=== PATIENT | male | born 1995 | race Caucasian/White ===

== ENCOUNTER 2018-07-09 14:37 | Observation (INO) | payer BC ==
[2018-07-09] MEDS ORDERED: SODIUM CHLORIDE 1,000 ML IV STA ×2 (14:45→18:25)
[2018-07-09] MEDS ORDERED: ONDANSETRON 4 MG/2 ML VIAL ONE (14:56)
--- NOTE | 2018-07-09 15:02 | PDOC ---
Attending Attestation - Resident Resident Name: Heath Lobatoson - ED Attending Attestation I have performed the following: I have examined & evaluated the patient, The case was reviewed & discussed with the resident, I agree w/resident's findings & plan, Exceptions are as noted - HPI HPI: 07/09/18 16:20 22-year-old male no past medical history here today complaining of nausea vomiting and body aches after mowing the lawn in the hot sun. Patient states he takes Adderall daily today he took his regular dose while mowing lawn he suddenly became very hot felt confused and suddenly developed severe nausea vomiting and fatigue. He did simply go home and take a very cold shower prior to presenting to the ED no rash no hematuria no seizure-like activity denies any other concurrent drug use - Physicial Exam PE: 07/09/18 17:40 Awake alert no acute distress patient is diaphoretic dry mucous membranes lungs are clear bilaterally heart is regular tachycardia no murmurs rubs or gallops abdomen is soft and nontender extremities are warm and well-perfused skin is diaphoretic neurologically the patient is awake alert and oriented 3 - Medical Decision Making 07/09/18 17:40 22-year-old male currently on Adderall with nausea vomiting following mowing the lawn in excessive heat differential diagnosis includes toxic ingestion heatstroke or heat exhaustion secondary to strenuous activity combined with a stimulant such as Adderall renal failure, liver failure, rhabdomyolysis, dehydration. Plan CBC CMP CPK tox screen IV hydration. Due to the patient's agitation and known stimulants we will add a benzodiazepine such as Ativan 1 mg IV. Patient is currently normothermic however he did just take a cold shower prior to arrival therefore he exhaustion is still a concern 07/09/18 17:48 pt with renal failure, ct a/p renal to eval for stone or obstruction negative. pt much improved. minimal urine output 200 ml after 2 L NS. yordy admit observation.d/w dr. gale for admission observation arf, heat stroke. temperatures controlled. Heart Score/ECG Review #1 General ECG Interpretation: Sinus Rhythm, Normal Rate, Normal Intervals, No acute ischemic changes
[2018-07-09] MEDS ORDERED: LORazepam 2 MG/ML SDV VIAL ONE (15:03)
[2018-07-09] MEDS ORDERED: ONDANSETRON 4 MG/2 ML VIAL IVPUSH ONE (15:07)
[2018-07-09 15:15] LABS: BASO % 0.3 % (0-2.0); HEMATOCRIT 50.5 % (35.4-49); HEMOGLOBIN 16.7 GM/dl (11.7-16.9); LYMPH % 8.4 % (8-40); MCH 29.8 pg (25.7-33.7); MCHC 33.2 g/dl (32.0-35.9); MEAN CELL VOLUME 89.9 fl (80-96); MEAN PLT VOLUME 9.1 fl (7.5-11.1); MONO % 7.1 % (3.8-10.2); NEUT % 84.2 % (42.8-82.8); PLATELET COUNT 326 K/MM3 (134-434); RBC 5.61 M/mm3 (4.00-5.60); RDW 13.9 % (11.9-15.9); WHITE BLOOD COUNT 18.6 K/mm3 (4.0-10.8)
[2018-07-09 15:29] LABS: ALBUMIN 6.8 g/dl (3.5-5.0); ALK PHOS 54 U/L (32-92); ANION GAP 20 MMOL/L (8-16); BILIRUBIN,TOTAL 1.3 mg/dl (0.2-1.0); BLOOD UREA NITROGEN 27 mg/dl (7-18); CALCIUM 11.5 mg/dl (8.4-10.2); CHLORIDE 89 mmol/L (98-107); CO2 24 mmol/L (22-28); CREATININE 2.7 mg/dl (0.6-1.3); GLUCOSE,RANDOM 149 mg/dl (74-106); POTASSIUM 4.2 mmol/L (3.5-5.1); SGOT/AST 32 U/L (10-42); SGPT/ALT 22 U/L (10-40); SODIUM 133 mmol/L (136-145)
[2018-07-09 15:34] LABS: TOT PROT 10.7 g/dl (6.4-8.3)
--- NOTE | 2018-07-09 16:02 | PDOC ---
History of Present Illness - General Chief Complaint: Nausea/Vomiting Stated Complaint: VOMITING Time Seen by Provider: 07/09/18 14:39 - History of Present Illness Initial Comments: 07/09/18 16:00 22 yo M with no significant pmh p/w fatigue, nausea, and vomiting. 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 Also reports fatigue, diaphoresis, and lighteadedness. Patient reports persistent symptoms dsepite taking a cold shower. Patient takes dialy Adderall. Patient denies F,C, CP, SOB, urinary complaints, hematuria, abdominal pain, diarrhea, BPR, constipation, lightheadedness, weakness, sensory changes. PMHx: as noted above Surgical: None ROS: as noted SHx: Denies Etoh, IVDA, tobacco use. Allergies: NKDA Past History - Past Medical History Allergies/Adverse Reactions: Allergies Allergy/AdvReac Type Severity Reaction Status Date / Time No Known Allergies Allergy Unverified 05/11/17 16:37 Home Medications: Ambulatory Orders Dextroamphetamine/Amphetamine [Adderall Xr 20 mg Capsule] 20 mg PO BID 07/09/18 COPD: No Psychiatric Problems: Yes (ADHD) - Suicide/Smoking/Psychosocial Hx Smoking History: Never smoked Have you smoked in the past 12 months: No Information on smoking cessation initiated: No Hx Alcohol Use: (weekends) Review of Systems - Review of Systems Comments:: 07/09/18 16:00 GENERAL/CONSTITUTIONAL: No fever or chills. No weakness. HEAD, EYES, EARS, NOSE AND THROAT: No change in vision. No ear pain or discharge. No sore throat. CARDIOVASCULAR: No chest pain or shortness of breath RESPIRATORY: No cough, wheezing, or hemoptysis. GASTROINTESTINAL: + nausea, vomiting. No diarrhea or constipation. GENITOURINARY: No dysuria, frequency, or change in urination. MUSCULOSKELETAL: No joint or muscle swelling or pain. No neck or back pain. SKIN: No rash NEUROLOGIC: + lightheadedness, and fatigue. No headache, vertigo, loss of consciousness, or change in strength/sensation. ENDOCRINE: No increased thirst. No abnormal weight change HEMATOLOGIC/LYMPHATIC: No anemia, easy bleeding, or history of blood clots. ALLERGIC/IMMUNOLOGIC: No hives or skin allergy. *Physical Exam - Vital Signs Last Vital Signs Temp Pulse Resp BP Pulse Ox 97.4 F L 97 H 18 102/87 97 07/09/18 14:37 07/09/18 14:37 07/09/18 14:37 07/09/18 14:37 07/09/18 14:37 - Physical Exam Comments: 07/09/18 16:00 GENERAL: Pale appearing, and diaphoretic. Awake, alert, and fully oriented, in no acute distress HEAD: No signs of trauma, normocephalic, atraumatic EYES: + conjuctival pallor. PERRLA, EOMI, sclera anicteric. ENT: + Dry mucous membranes. Auricles normal inspection, hearing grossly normal , nares patent, oropharynx clear without exudates. NECK: Normal ROM, supple, no lymphadenopathy, JVD, or masses LUNGS: No distress, speaks full sentences, clear to auscultation bilaterally HEART: Regular rate and rhythm, normal S1 and S2, no murmurs, rubs or gallops, peripheral pulses normal and equal bilaterally. ABDOMEN: Soft, nontender, normoactive bowel sounds. No guarding, no rebound. No masses EXTREMITIES : Normal inspection, Normal range of motion, no edema. No clubbing or cyanosis. NEUROLOGICAL: Cranial nerves II through XII grossly intact. Normal speech, normal gait, no focal sensorimotor deficits SKIN: Warm, Dry, normal turgor, no rashes or lesions noted ED Treatment Course - LABORATORY CBC & Chemistry Diagram: 07/09/18 14:55 07/09/18 14:55 - ADDITIONAL ORDERS Additional order review: Laboratory Results 07/09/18 07/09/18 14:55 14:55 Sodium 133 L Potassium 4.2 Chloride 89 L Carbon Dioxide 24 Anion Gap 20 H BUN 27 H Creatinine 2.7 H Creat Clearance w eGFR 29.43 Random Glucose 149 H Calcium 11.5 H Total Bilirubin 1.3 H AST 32 ALT 22 Alkaline Phosphatase 54 Creatine Kinase 178 Creatine Kinase Index 1.4 CK-MB (CK-2) 2.5 Total Protein 10.7 H Albumin 6.8 H 07/09/18 14:55 RBC 5.61 H MCV 89.9 MCHC 33.2 RDW 13.9 MPV 9.1 Neutrophils % 84.2 H Lymphocytes % 8.4 Monocytes % 7.1 Eosinophils % 0.0 Basophils % 0.3 - Medications Given in the ED: ED Medications Discontinued Medications Generic Name Dose Route Start Last Admin Trade Name Riddhi PRN Reason Stop Dose Admin Sodium Chloride 1,000 mls @ 1,000 mls/hr 07/09/18 14:45 07/09/18 14:55 Normal Saline - IV 07/09/18 15:44 1,000 mls/hr ASDIR STA Administration Lorazepam 1 mg 07/09/18 15:07 07/09/18 15:09 Ativan Injection - IVPUSH 07/09/18 15:08 1 mg ONCE ONE Administration Ondansetron HCl 4 mg 07/09/18 15:07 07/09/18 15:00 Zofran Injection IVPUSH 07/09/18 15:08 4 mg ONCE ONE Administration Medical Decision Making - Medical Decision Making 07/09/18 16:03 22 yo M with no significant pmh p/w fatigue, nausea, and vomiting. VSS, AF. Patient with clinical s/s of dehydration. Likely heat exhaustion. Low suspicion heat stroke. Patient non delusional. A&Ox3, Temp 97.4, and maintains perspiration. Will provide IVF, assess for end organ dysfunction, and electrolyte abnml, metabolic or toxic derangements, acid base disturbances. ED Course: EKG: NSR with 1st degree AV block, MA interval 226, and absent BERNY, STD. 07/09/18 16:46 WBC: 18.6 BUN/Cr: 27/2.7 07/09/18 16:46 Microblogged admitting symphony group 07/09/18 17:[address] Carbone Med/Surg Consult Dr. Bullard renal *DC/Admit/Observation/Transfer Diagnosis at time of Disposition: MATTHEW (acute kidney injury) Heat exhaustion Qualifiers: Encounter type: initial encounter Qualified Code(s): T67.5XXA - Heat exhaustion , unspecified, initial encounter - Discharge Dispostion Condition at time of disposition: Stable Decision to Admit order: Yes - Referrals Referrals: Blair Roach MD [Primary Care Provider] - - Patient Instructions Additional Instructions: Please return to the emergency department with any new or worsening symptoms or concerns. Please follow up with your primary care physician within 72 hours. - Post Discharge Activity - Attestations Physician Attestion: 07/09/18 16:01 I attest to the information provided in this note.
[2018-07-09] MEDS ORDERED: SODIUM CHLORIDE 0.9% 1000 ML INFUS.BAG IV ONE (16:39)
[2018-07-09 16:47] LABS: INR 1.04 (0.82-1.09); PROTHROMBIN TIME (PATIENT) 11.6 SEC (10.2-13.0)
[2018-07-09 18:14] LABS: PH,URINE 5.5 (4.5-8); URINE APPEARANCE Clear; URINE BILIRUBIN 1+ (NEGATIVE); URINE COLOR Yellow; URINE GLUCOSE (UA) Negative (NEGATIVE); URINE KETONE 1+ (NEGATIVE); URINE LEUK ESTERASE Negative (NEGATIVE); URINE NITRITE Negative (NEGATIVE); URINE UROBILINOGEN 0.2 (0.2-1.0)
[2018-07-09 18:15] LABS: URINE PROTEIN 2+ (NEGATIVE)
[2018-07-09 18:32] LABS: VENOUS PC02 54.7 mmHg (38-52); VENOUS PH 7.28 (7.32-7.42); VENOUS PO2 32.9 mmHg (28-48)
[2018-07-09 19:41] LABS: URINE RBC 0-2 /hpf (0-3); URINE WBC 0-1 (0-2)
--- NOTE | 2018-07-09 20:57 | HP ---
CHIEF COMPLAINT: Fatigue, Nausea, Vomiting PCP: Dr. Blair Roach HISTORY OF PRESENT ILLNESS: 22 yo M with no significant pmh p/w fatigue, nausea, and vomiting. 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 Also reports fatigue, diaphoresis, and lightheadedness. Patient reports persistent symptoms despite taking a cold shower. Patient takes daily Adderall. Patient denies Fever,Chills, CP, SOB, urinary complaints, hematuria, abdominal pain, diarrhea, BPR, constipation, lightheadedness, weakness, sensory changes. ER course was notable for: (1) WBC 18 (2) MATTHEW 27/2.7 (3) EKG- NSR no ST or TWI (4) CTAP- no acute pathology Recent Travel: None PAST MEDICAL HISTORY: See HPI PAST SURGICAL HISTORY: None Social History: Smoking: No tobacco Alcohol: Social Drugs: Marijuana- occasional Family History: Non contributory Allergies No Known Allergies Allergy (Unverified 05/11/17 16:37) HOME MEDICATIONS: Home Medications Medication Instructions Recorded Dextroamphetamine/Amphetamine 20 mg PO BID 07/09/18 [Adderall Xr 20 mg Capsule] REVIEW OF SYSTEMS CONSTITUTIONAL: diaphoresis, generalized weakness, malaise Absent: fever, chills, loss of appetite, weight change HEENT: Absent: rhinorrhea, nasal congestion, throat pain, throat swelling, difficulty swallowing, mouth swelling, ear pain, eye pain, visual changes CARDIOVASCULAR: Absent: chest pain, syncope, palpitations, irregular heart rate, lightheadedness , peripheral edema RESPIRATORY: Absent: cough, shortness of breath, dyspnea with exertion, orthopnea, wheezing, stridor, hemoptysis GASTROINTESTINAL: Absent: abdominal pain, abdominal distension, nausea, vomiting, diarrhea, constipation, melena, hematochezia GENITOURINARY: Absent: dysuria, frequency, urgency, hesitancy, hematuria, flank pain, genital pain MUSCULOSKELETAL: Absent: myalgia, arthralgia, joint swelling, back pain, neck pain SKIN: Absent: rash, itching, pallor HEMATOLOGIC/IMMUNOLOGIC: Absent: easy bleeding, easy bruising, lymphadenopathy, frequent infections ENDOCRINE: Absent: unexplained weight gain, unexplained weight loss, heat intolerance, cold intolerance NEUROLOGIC: Absent: headache, focal weakness or paresthesias, dizziness, unsteady gait, seizure, mental status changes, bladder or bowel incontinence PSYCHIATRIC: Absent: anxiety, depression, suicidal or homicidal ideation, hallucinations. PHYSICAL EXAMINATION Vital Signs - 24 hr 07/09/18 07/09/18 14:37 18:44 Temperature 97.4 F L 97.6 F Pulse Rate 97 H Pulse Rate [ 89 Left Apical] Respiratory 18 16 Rate Blood Pressure 102/87 Blood Pressure 121/68 [Right Arm] O2 Sat by Pulse 97 99 Oximetry (%) GENERAL: Awake, alert, and fully oriented, in no acute distress. HEAD: Normal with no signs of trauma. EYES: Pupils equal, round and reactive to light, extraocular movements intact, sclera anicteric, conjunctiva clear. No lid lag. EARS, NOSE, THROAT: Ears normal, nares patent, oropharynx clear without exudates. Dry mucous membranes. NECK: Normal range of motion, supple without lymphadenopathy, JVD, or masses. LUNGS: Breath sounds equal, clear to auscultation bilaterally. No wheezes, and no crackles. No accessory muscle use. HEART: Regular rate and rhythm, normal S1 and S2 without murmur, rub or gallop. ABDOMEN: Soft, nontender, not distended, normoactive bowel sounds, no guarding, no rebound, no masses. No hepatomegaly or splenomegaly. MUSCULOSKELETAL: Normal range of motion at all joints. No bony deformities or tenderness. No CVA tenderness. UPPER EXTREMITIES: 2+ pulses, warm, well-perfused. No cyanosis. No clubbing. No peripheral edema. LOWER EXTREMITIES: 2+ pulses, warm, well-perfused. No calf tenderness. No peripheral edema. NEUROLOGICAL: Cranial nerves II-XII intact. Normal speech. Gait not observed. PSYCHIATRIC: Cooperative. Good eye contact. Appropriate mood and affect. SKIN: Warm, dry, normal turgor, no rashes or lesions noted, normal capillary refill. Laboratory Results - last 24 hr 07/09/18 07/09/18 07/09/18 14:55 14:55 14:55 WBC 18.6 H RBC 5.61 H Hgb 16.7 Hct 50.5 H MCV 89.9 MCH 29.8 MCHC 33.2 RDW 13.9 Plt Count 326 MPV 9.1 Absolute Neuts (auto) 15.6 Neutrophils % 84.2 H Lymphocytes % 8.4 Monocytes % 7.1 Eosinophils % 0.0 Basophils % 0.3 PT with INR INR VBG pH POC VBG pCO2 POC VBG pO2 Mixed VBG HCO3 Sodium 133 L Potassium 4.2 Chloride 89 L Carbon Dioxide 24 Anion Gap 20 H BUN 27 H Creatinine 2.7 H Creat Clearance w eGFR 29.43 Random Glucose 149 H Lactic Acid Calcium 11.5 H Total Bilirubin 1.3 H AST 32 ALT 22 Alkaline Phosphatase 54 Creatine Kinase 178 Creatine Kinase Index 1.4 CK-MB (CK-2) 2.5 Total Protein 10.7 H Albumin 6.8 H Urine Color Urine Appearance Urine pH Ur Specific [place] Urine Protein Urine Glucose (UA) Urine Ketones Urine Blood Urine Nitrite Urine Bilirubin Urine Urobilinogen Ur Leukocyte Esterase Urine RBC Urine WBC 07/09/18 07/09/18 07/09/18 16:10 16:10 16:10 WBC RBC Hgb Hct MCV MCH MCHC RDW Plt Count MPV Absolute Neuts (auto) Neutrophils % Lymphocytes % Monocytes % Eosinophils % Basophils % PT with INR 11.6 INR 1.04 VBG pH 7.28 L POC VBG pCO2 54.7 H POC VBG pO2 32.9 Mixed VBG HCO3 24.6 Sodium Potassium Chloride Carbon Dioxide Anion Gap BUN Creatinine Creat Clearance w eGFR Random Glucose Lactic Acid 1.4 Calcium Total Bilirubin AST ALT Alkaline Phosphatase Creatine Kinase Creatine Kinase Index CK-MB (CK-2) Total Protein Albumin Urine Color Urine Appearance Urine pH Ur Specific [place] Urine Protein Urine Glucose (UA) Urine Ketones Urine Blood Urine Nitrite Urine Bilirubin Urine Urobilinogen Ur Leukocyte Esterase Urine RBC Urine WBC 07/09/18 17:45 WBC RBC Hgb Hct MCV MCH MCHC RDW Plt Count MPV Absolute Neuts (auto) Neutrophils % Lymphocytes % Monocytes % Eosinophils % Basophils % PT with INR INR VBG pH POC VBG pCO2 POC VBG pO2 Mixed VBG HCO3 Sodium Potassium Chloride Carbon Dioxide Anion Gap BUN Creatinine Creat Clearance w eGFR Random Glucose Lactic Acid Calcium Total Bilirubin AST ALT Alkaline Phosphatase Creatine Kinase Creatine Kinase Index CK-MB (CK-2) Total Protein Albumin Urine Color Yellow Urine Appearance Clear Urine pH 5.5 Ur Specific [place] 1.025 Urine Protein 2+ H Urine Glucose (UA) Negative Urine Ketones 1+ H Urine Blood Negative Urine Nitrite Negative Urine Bilirubin 1+ H Urine Urobilinogen 0.2 Ur Leukocyte Esterase Negative Urine RBC 0-2 Urine WBC 0-1 ASSESSMENT/PLAN: This is a 22 y/o man with a PMHx of ADHD. Placed on Tele Observation for Heat Exhaustion, MATTHEW for further evaluation of their emergent condition. FEN: NS@100ml/hr Replete lytes prn Regular Diet as tolerated DVT ppx OOB AC if LOS > 48hrs Code Status: Full Code Dispo: Tele Observation Problem List - Problem (1) Heat exhaustion Assessment/Plan: - Likely secondary to dehydration - Folder Machine - NS bolus x3 given - Will continue IVF - Monitor CBC, BMP - Utox +amphetamines (currently on), THC - Trend CPK r/o Rhabdomyolosis - Replete lytes Code(s): T67.5XXA - HEAT EXHAUSTION, UNSPECIFIED, INITIAL ENCOUNTER Qualifiers: Encounter type: initial encounter Qualified Code(s): T67.5XXA - Heat exhaustion, unspecified, initial encounter (2) MATTHEW (acute kidney injury) Assessment/Plan: - Likely secondary to Dehydration from Heat - NS bolus given in ED - Continue IVF - Appreciate Nephrology consult - Repeat BMP in am - consider renal US - Monitor vitals Code(s): N17.9 - ACUTE KIDNEY FAILURE, UNSPECIFIED Visit type - Emergency Visit Emergency Visit: Yes ED Registration Date: 07/09/18 Care time: The patient presented to the Emergency Department on the above date and was hospitalized for further evaluation of their emergent condition. - New Patient This patient is new to me today: Yes Date on this admission: 07/09/18 - Critical Care Critical Care patient: No Hospitalist Screening - Colonoscopy Questionnaire Colonoscopy Questionnaire: Colonoscopy Questionnaire - Patient: 50 - 75 years old and never had a screening colonoscopy: No History of colon or rectal polyps, or CA: No History of IBD, Crohn's disease or UC: No History of abdominal radiation therapy as a child: No - Relative: 1 with colon or rectal CA, or polyps at age 60 or younger: No Colon or rectal CA diagnosed at age 45 or younger: No Multiple relatives with colon or rectal CA: No - Outcome: Screening Result: Negative Screen
[2018-07-09] MEDS ORDERED: SODIUM CHLORIDE 1,000 ML IV SCH (21:00)
[2018-07-09 21:02] VITALS: BMI 23.1
[2018-07-09 21:51] LABS: COCAINE, UR NEGATIVE ng/ml (CUTOFF=300); METHADONE, UR NEGATIVE ng/ml (CUTOFF=300); OPIATES, URI NEGATIVE ng/ml (CUTOFF=300); PHENCYCLIDINE,URINE NEGATIVE ng/ml (CUTOFF=25); URINE BARBITURATES NEGATIVE ng/ml (CUTOFF=200); URINE BENZODIAZEPINES NEGATIVE ng/ml (CUTOFF=200)
[2018-07-09 21:53] LABS: URINE AMPHETAMINES POSITIVE ng/ml (CUTOFF=500)
[2018-07-10 08:09] LABS: BASO % 0.4 % (0-2.0); EOS % 0.5 % (0-4.5); HEMATOCRIT 36.3 % (35.4-49); HEMOGLOBIN 11.9 GM/dl (11.7-16.9); LYMPH % 25.3 % (8-40); MCH 29.5 pg (25.7-33.7); MCHC 32.7 g/dl (32.0-35.9); MEAN CELL VOLUME 90.3 fl (80-96); MONO % 11.1 % (3.8-10.2); NEUT % 62.7 % (42.8-82.8); PLATELET COUNT 217 K/MM3 (134-434); RBC 4.01 M/mm3 (4.00-5.60); RDW 13.1 % (11.9-15.9); WHITE BLOOD COUNT 6.5 K/mm3 (4.0-10.8)
[2018-07-10 08:19] LABS: ANION GAP 5 MMOL/L (8-16); BLOOD UREA NITROGEN 19 mg/dl (7-18); CHLORIDE 103 mmol/L (98-107); CO2 26 mmol/L (22-28); CREATININE 1.1 mg/dl (0.6-1.3); GLUCOSE,RANDOM 98 mg/dl (74-106); MAGNESIUM 1.9 mg/dL (1.8-2.4); PHOSPHOROUS 3.6 mg/dl (2.5-4.6); POTASSIUM 4.7 mmol/L (3.5-5.1); SODIUM 134 mmol/L (136-145)
--- NOTE | 2018-07-10 08:47 | EKG ---
Test Reason : Blood Pressure : / mmHG Vent. Rate : 067 BPM Atrial Rate : 067 BPM P-R Int : 168 ms QRS Dur : 086 ms QT Int : 374 ms P-R-T Axes : 074 077 065 degrees QTc Int : 395 ms NORMAL SINUS RHYTHM NORMAL ECG NO PREVIOUS ECGS AVAILABLE Confirmed by KARSON MELENDEZ, MARICHUY ([id number]) on 07/10/2018 8:46:45 AM Referred By: DR CAMEJO Confirmed By:MARICHUY TY MD
--- NOTE | 2018-07-10 08:56 | CONSULT ---
Consult Consult Specialty:: Nephrology Reason for Consultation:: MATTHEW - History of Present Illness Chief Complaint: nausea and vomiting History of Present Illness: Pt is a 22 year old male with no significant pmhx who presents to the ER with nausea and vomiting. He says he was working outside and felt very hot. He had a few episodes of vomiting however he kept on working. He then vomited more and came to the ER. He was working outside doing landscaping. He says it is difficult to get rest while at work as there really there is nowhere to rest. He was found to be in MATTHEW and I was called to evaluate him. He did respond to fluids. He is tolerating diet and does feel better. He denies shortness of breath. He denies dysuria or hematuria. He denies history of CKD. He says that he did have an episode like this in past but did not go to the ER. He denies family history of kidney disease. - History Source History Provided By: Patient - Alcohol/Substance Use Hx Alcohol Use: Yes (weekends) - Smoking History Smoking history: Never smoked Have you smoked in the past 12 months: No Home Medications - Allergies Allergies/Adverse Reactions: Allergies Allergy/AdvReac Type Severity Reaction Status Date / Time No Known Allergies Allergy Unverified 05/11/17 16:37 - Home Medications Home Medications: Ambulatory Orders Dextroamphetamine/Amphetamine [Adderall Xr 20 mg Capsule] 20 mg PO BID 07/09/18 Family Disease History - Family Disease History Other Family History: DM Review of Systems - Review of Systems Constitutional: reports: Malaise. denies: Chills, Fever Eyes: reports: No Symptoms HENT: reports: No Symptoms Neck: reports: No Symptoms Cardiovascular: reports: No Symptoms Respiratory: reports: No Symptoms Gastrointestinal: reports: Vomiting Genitourinary: reports: No Symptoms Musculoskeletal: reports: No Symptoms Integumentary: reports: No Symptoms Neurological: reports: No Symptoms Endocrine: reports: No Symptoms Hematology/Lymphatic: reports: No Symptoms Psychiatric: reports: No Symptoms Physical Exam Vital Signs: Vital Signs Temperature 98.1 F 07/10/18 05:34 Pulse Rate 75 07/10/18 05:34 Respiratory Rate 18 07/10/18 05:34 Blood Pressure 107/53 07/10/18 05:34 O2 Sat by Pulse Oximetry (%) 100 07/10/18 05:34 Constitutional: Yes: Calm Eyes: Yes: Conjunctiva Clear HENT: Yes: Atraumatic Neck: Yes: Supple Cardiovascular: Yes: S1, S2 Respiratory: Yes: CTA Bilaterally Gastrointestinal: Yes: Soft Renal/: Yes: WNL Musculoskeletal: Yes: WNL Edema: No Neurological: Yes: Oriented Psychiatric: Yes: Oriented Labs: CBC, BMP 07/10/18 07:15 07/10/18 07:15 Laboratory Tests 07/09/18 07/09/18 07/09/18 14:55 17:45 17:45 Sodium 133 L Potassium 4.2 BUN 27 H Creatinine 2.7 H Urine Protein 2+ H Urine Ketones 1+ H Urine Blood Negative Urine Bilirubin 1+ H Ur Amphetamines Screen Positive U Marijuana (THC) Screen Positive 07/10/18 07:15 Sodium 134 L Potassium 4.7 BUN 19 H Creatinine 1.1 Urine Protein Urine Ketones Urine Blood Urine Bilirubin Ur Amphetamines Screen U Marijuana (THC) Screen Imaging - Results Cat Scan: Report Reviewed Problem List - Problems (1) MATTHEW (acute kidney injury) Code(s): N17.9 - ACUTE KIDNEY FAILURE, UNSPECIFIED (2) Heat exhaustion Code(s): T67.5XXA - HEAT EXHAUSTION, UNSPECIFIED, INITIAL ENCOUNTER Qualifiers: Encounter type: initial encounter Qualified Code(s): T67.5XXA - Heat exhaustion, unspecified, initial encounter Assessment/Plan Current Medications Generic Name Dose Route Start Last Admin Trade Name Freq PRN Reason Stop Dose Admin Sodium Chloride 1,000 mls @ 100 mls/hr 07/09/18 21:00 07/09/18 21:43 Normal Saline - IV 100 mls/hr ASDIR MACEY Administration Impression 1. MATTHEW resolving 2. dehydration 3. proteinuria 4. heat exhaustion 5. 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
--- NOTE | 2018-07-10 09:41 | DS ---
Physical Exam: SUBJECTIVE: Patient seen and examined Patient is ambulatory at bedside, tolerating diet Denies any chest pain or shortness of breath. Ready for discharge home OBJECTIVE:22 yo M with no significant pmh p/w fatigue, nausea, and vomiting. 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 Also reports fatigue, diaphoresis, and lightheadedness. Patient reports persistent symptoms dsepite taking a cold shower. Patient takes daily Adderall. Patient denies F,C, CP, SOB, urinary complaints, hematuria, abdominal pain, diarrhea, BPR, constipation, lightheadedness, weakness, sensory changes. Vital Signs Period Temp Pulse Resp BP Sys/[place] Pulse Ox Last 24 Hr 97.4 F-98.4 F 69-97 16-18 102-121/53-87 97-100 PHYSICAL EXAM GENERAL: The patient is awake, alert, and fully oriented, in no acute distress. HEAD: Normal with no signs of trauma. EYES: PERRL, extraocular movements intact, sclera anicteric, conjunctiva clear. ENT: Ears normal, nares patent, oropharynx clear without exudates, moist mucous membranes. NECK: Trachea midline, full range of motion, supple. LUNGS: Breath sounds equal, clear to auscultation bilaterally, no wheezes, no crackles, no accessory muscle use. HEART: Regular rate and rhythm, S1, S2 without murmur, rub or gallop. ABDOMEN: Soft, nontender, nondistended, normoactive bowel sounds, no guarding, no rebound, no hepatosplenomegaly, no masses. EXTREMITIES: 2+ pulses, warm, well-perfused, no edema. NEUROLOGICAL: Cranial nerves II through XII grossly intact. Normal speech, gait not observed. PSYCH: Normal mood, normal affect. SKIN: Warm, dry, normal turgor, no rashes or lesions noted. LABS Laboratory Results - last 24 hr 07/09/18 07/09/18 07/09/18 14:55 14:55 14:55 WBC 18.6 H RBC 5.61 H Hgb 16.7 Hct 50.5 H MCV 89.9 MCH 29.8 MCHC 33.2 RDW 13.9 Plt Count 326 MPV 9.1 Absolute Neuts (auto) 15.6 Neutrophils % 84.2 H Lymphocytes % 8.4 Monocytes % 7.1 Eosinophils % 0.0 Basophils % 0.3 PT with INR INR VBG pH POC VBG pCO2 POC VBG pO2 Mixed VBG HCO3 Sodium 133 L Potassium 4.2 Chloride 89 L Carbon Dioxide 24 Anion Gap 20 H BUN 27 H Creatinine 2.7 H Creat Clearance w eGFR 29.43 Random Glucose 149 H Lactic Acid Calcium 11.5 H Phosphorus Magnesium Total Bilirubin 1.3 H AST 32 ALT 22 Alkaline Phosphatase 54 Creatine Kinase 178 Creatine Kinase Index 1.4 CK-MB (CK-2) 2.5 Total Protein 10.7 H Albumin 6.8 H Lipase Urine Color Urine Appearance Urine pH Ur Specific [place] Urine Protein Urine Glucose (UA) Urine Ketones Urine Blood Urine Nitrite Urine Bilirubin Urine Urobilinogen Ur Leukocyte Esterase Urine RBC Urine WBC Opiates Screen Methadone Screen Barbiturate Screen Phencyclidine Screen Ur Amphetamines Screen MDMA (Ecstasy) Screen Benzodiazepines Screen Cocaine Screen U Marijuana (THC) Screen 07/09/18 07/09/18 07/09/18 16:10 16:10 16:10 WBC RBC Hgb Hct MCV MCH MCHC RDW Plt Count MPV Absolute Neuts (auto) Neutrophils % Lymphocytes % Monocytes % Eosinophils % Basophils % PT with INR 11.6 INR 1.04 VBG pH 7.28 L POC VBG pCO2 54.7 H POC VBG pO2 32.9 Mixed VBG HCO3 24.6 Sodium Potassium Chloride Carbon Dioxide Anion Gap BUN Creatinine Creat Clearance w eGFR Random Glucose Lactic Acid Calcium Phosphorus Magnesium Total Bilirubin AST ALT Alkaline Phosphatase Creatine Kinase Creatine Kinase Index CK-MB (CK-2) Total Protein Albumin Lipase 108 Urine Color Urine Appearance Urine pH Ur Specific [place] Urine Protein Urine Glucose (UA) Urine Ketones Urine Blood Urine Nitrite Urine Bilirubin Urine Urobilinogen Ur Leukocyte Esterase Urine RBC Urine WBC Opiates Screen Methadone Screen Barbiturate Screen Phencyclidine Screen Ur Amphetamines Screen MDMA (Ecstasy) Screen Benzodiazepines Screen Cocaine Screen U Marijuana (THC) Screen 07/09/18 07/09/18 07/09/18 16:10 17:45 17:45 WBC RBC Hgb Hct MCV MCH MCHC RDW Plt Count MPV Absolute Neuts (auto) Neutrophils % Lymphocytes % Monocytes % Eosinophils % Basophils % PT with INR INR VBG pH POC VBG pCO2 POC VBG pO2 Mixed VBG HCO3 Sodium Potassium Chloride Carbon Dioxide Anion Gap BUN Creatinine Creat Clearance w eGFR Random Glucose Lactic Acid 1.4 Calcium Phosphorus Magnesium Total Bilirubin AST ALT Alkaline Phosphatase Creatine Kinase Creatine Kinase Index CK-MB (CK-2) Total Protein Albumin Lipase Urine Color Yellow Urine Appearance Clear Urine pH 5.5 Ur Specific [place] 1.025 Urine Protein 2+ H Urine Glucose (UA) Negative Urine Ketones 1+ H Urine Blood Negative Urine Nitrite Negative Urine Bilirubin 1+ H Urine Urobilinogen 0.2 Ur Leukocyte Esterase Negative Urine RBC 0-2 Urine WBC 0-1 Opiates Screen Negative Methadone Screen Negative Barbiturate Screen Negative Phencyclidine Screen Negative Ur Amphetamines Screen Positive MDMA (Ecstasy) Screen Negative Benzodiazepines Screen Negative Cocaine Screen Negative U Marijuana (THC) Screen Positive 07/10/18 07/10/18 07/10/18 07:15 07:15 07:15 WBC 6.5 RBC 4.01 Hgb 11.9 Hct 36.3 D MCV 90.3 MCH 29.5 MCHC 32.7 RDW 13.1 Plt Count 217 D MPV 9.0 Absolute Neuts (auto) 4.2 Neutrophils % 62.7 D Lymphocytes % 25.3 D Monocytes % 11.1 H Eosinophils % 0.5 D Basophils % 0.4 PT with INR INR VBG pH POC VBG pCO2 POC VBG pO2 Mixed VBG HCO3 Sodium 134 L Potassium 4.7 Chloride 103 D Carbon Dioxide 26 Anion Gap 5 L BUN 19 H Creatinine 1.1 Creat Clearance w eGFR > 60 Random Glucose 98 D Lactic Acid Calcium 9.0 D Phosphorus 3.6 Magnesium 1.9 Total Bilirubin AST ALT Alkaline Phosphatase Creatine Kinase 245 Creatine Kinase Index 1.4 CK-MB (CK-2) 3.5 Total Protein Albumin Lipase Urine Color Urine Appearance Urine pH Ur Specific [place] Urine Protein Urine Glucose (UA) Urine Ketones Urine Blood Urine Nitrite Urine Bilirubin Urine Urobilinogen Ur Leukocyte Esterase Urine RBC Urine WBC Opiates Screen Methadone Screen Barbiturate Screen Phencyclidine Screen Ur Amphetamines Screen MDMA (Ecstasy) Screen Benzodiazepines Screen Cocaine Screen U Marijuana (THC) Screen Imaging CT of abdomen and pelvis:Normal abdomen and pelvis no evidence of hydronephrosis or renal calculi or acute pathology. As per radiologist. Dr Estrada Ultrasound of kidney renal: Normal dilation of the right renal pelvis without gross evidence of hydronephrosis for kidneys appear unremarkable without evidence of stones, as per radiologist Dr. Abdo HOSPITAL COURSE: Patient is a 22-year-old male with no significant past medical history does admitted to observation to the medical surgical floor, patient was noted to have a MATTHEW secondary to dehydration. Renal function improved with IV hydration.. CT scan of abdomen and pelvis and ultrasound of kidneys were noted as above. Furniture Technician Dr. Vickers was consulted. PLAN: discharge home with PCP Patient is reviewed on importance of hydration, patient verbalizes understanding , return precautions reviewed Date of Admission:07/09/18 Date of Discharge: 07/10/18 Minutes to complete discharge: 45 Discharge Summary Reason For Visit: ACUTE KIDNEY INJURY-DEHYDRATION- Current Active Problems MATTHEW (acute kidney injury) (Acute) Heat exhaustion (Acute) Condition: Improved - Instructions Diet, Activity, Other Instructions: continue to drink frequent amounts of fluid throughout today Please follow up with your primary care Physician within one week Please return to the emergency department with any new or worsening symptoms or concerns. Referrals: Blair Roach MD [Primary Care Provider] - Disposition: HOME - Home Medications Comprehensive Discharge Medication List: Ambulatory Orders Dextroamphetamine/Amphetamine [Adderall Xr 20 mg Capsule] 20 mg PO BID 07/09/18 This patient is new to me today: Yes Date on this admission: 07/10/18 Emergency Visit: Yes ED Registration Date: 07/09/18 Care time: The patient presented to the Emergency Department on the above date and was hospitalized for further evaluation of their emergent condition. Critical Care patient: No - Discharge Referral Referred to [facility] Med P.C.: No
[2018-07-10 10:31] VITALS: BP 109/61; PULSE 70; TEMP 98.2
== END 2018-07-10 10:40 | disposition home or self-care (01) ==
LOC: FER 14:37 → FM/S 17:38
PROVIDERS: ADMIT Internal Medicine; ATTEND Nurse Practitioner Family
PROC: 3E033GC Introduction of Other Therapeutic Substance into Peripheral Vein, Percutaneous Approach (ICD-10-PCS; principal; 2018-07-09)
PROC: 3E0337Z Introduction of Electrolytic and Water Balance Substance into Peripheral Vein, Percutaneous Approach (ICD-10-PCS; 2018-07-09)
DX: N17.9 Acute kidney failure, unspecified (principal); T67.5XXA Heat exhaustion, unspecified, initial encounter; X32.XXXA Exposure to sunlight, initial encounter; Y93.H2 Activity, gardening and landscaping; Y92.007 Garden or yard of unspecified non-institutional (private) residence as the place of occurrence of the external cause; E86.0 Dehydration; R80.9 Proteinuria, unspecified
CPT/HCPCS: 36415; 74176; 76775-TC; 80048; 80053; 80307; 81003; 81015; 82550; 82553; 82803; 83605; 83690; 83735; 84100; 85025; 85610; 93005; 99285-25; G0378; J7030

== ENCOUNTER 2019-08-11 20:45 | Emergency (ER) | payer BC ==
[2019-08-11 21:01] VITALS: BP 116/44; PULSE 57; TEMP 98.1; BMI 25.4
[2019-08-11] MEDS ORDERED: DIPHTH,PERTUSS(ACELL),TET 0.5 ML DISP.SYRIN IM ONE ×2 (21:06→21:10)
--- NOTE | 2019-08-11 21:13 | PDOC ---
Documentation entered by Preeti Mosley SCRIBE, acting as scribe for Lebron Schofield MD. Lebron Schofield MD: This documentation has been prepared by the Dimitri murphy Aiswarya, SCRIBE, under my direction and personally reviewed by me in its entirety. I confirm that the documentation accurately reflects all work, treatment, procedures, and medical decision making performed by me. History of Present Illness - General Chief Complaint: Laceration Stated Complaint: LACERATION History Source: Patient Exam Limitations: No Limitations - History of Present Illness Initial Comments: 08/11/19 20:58 The patient is a 23 year old male, with a significant PMH of ADHD, who presents to the emergency department with head laceration that occurred today. The patient states that he was going up the stairs when he caught the back of his head on a nail. The patient reports mild pain and small laceration to the site of injury. Denies any numbness or tingling. Denies any active bleeding, altered mental status or any other injuries. Denies any dizziness, vision changes, shortness of breath and headache. Allergies: NKDA Past surgical history: None reported Social history: smokes marijuana and drinks alcohol on the weekends PCP: None reported Past History - Past Medical History Allergies/Adverse Reactions: Allergies Allergy/AdvReac Type Severity Reaction Status Date / Time No Known Allergies Allergy Verified 08/11/19 20:46 Home Medications: Ambulatory Orders Dextroamphetamine/Amphetamine [Adderall Xr 20 mg Capsule] 20 mg PO BID 07/09/18 COPD: No Psychiatric Problems: Yes (ADHD) - Psycho Social/Smoking Cessation Hx Smoking History: Never smoked Have you smoked in the past 12 months: No Hx Alcohol Use: Yes (weekends) Drug/Substance Use Hx: Yes (2 years) Substance Use Type: Marijuana Hx Substance Use Treatment: No Review of Systems - Review of Systems Able to Perform ROS?: Yes Comments:: 08/11/19 20:58 GENERAL/CONSTITUTIONAL: No fever or chills. No weakness. HEAD, EYES, EARS, NOSE AND THROAT: No change in vision. No ear pain or discharge. No sore throat. CARDIOVASCULAR: No chest pain or shortness of breath. RESPIRATORY: No cough, wheezing, or hemoptysis. GASTROINTESTINAL: No nausea, vomiting, diarrhea or constipation. GENITOURINARY: No dysuria, frequency, or change in urination. MUSCULOSKELETAL: No joint or muscle swelling or pain. No neck or back pain. SKIN: head laceration NEUROLOGIC: No headache, vertigo, loss of consciousness, or change in strength/ sensation. ENDOCRINE: No increased thirst. No abnormal weight change. HEMATOLOGIC/LYMPHATIC: No anemia, easy bleeding, or history of blood clots. ALLERGIC/IMMUNOLOGIC: No hives or skin allergy. *Physical Exam - Vital Signs Last Vital Signs Temp Pulse Resp BP Pulse Ox 98.1 F 57 L 18 116/44 L 98 08/11/19 20:47 08/11/19 20:47 08/11/19 20:47 08/11/19 20:47 08/11/19 20:47 - Physical Exam Comments: 08/11/19 20:58 GENERAL: Awake, alert, and fully oriented, in no acute distress HEAD: No signs of trauma EYES: PERRLA, EOMI, sclera anicteric, conjunctiva clear ENT: Auricles normal inspection, hearing grossly normal, nares patent, oropharynx clear without exudates. Moist mucosa EXTREMITIES: Normal range of motion, no edema. No clubbing or cyanosis. No cords, erythema, or tenderness NEUROLOGICAL: Cranial nerves II through XII grossly intact. Normal speech, normal gait SKIN: +3 cm linear head laceration Procedures - Laceration/Wound Repair Head Wound Explored: clean, no foreign body present Wound's Depth, Shape: linear Wound Repaired With: Dermabond Medical Decision Making - Medical Decision Making 08/12/19 06:30 scalp lac no blunt head trauma repaired tetanus Discharge - Discharge Information Problems reviewed: Yes Clinical Impression/Diagnosis: Scalp laceration Qualifiers: Encounter type: initial encounter Qualified Code(s): S01.01XA - Laceration without foreign body of scalp, initial encounter Condition: Good Disposition: HOME - Follow up/Referral - Patient Discharge Instructions Patient Printed Discharge Instructions: How to Care for a Surgical Wound-Skin Adhesive - Post Discharge Activity
== END 2019-08-11 21:22 | disposition home or self-care (01) ==
LOC: FER 20:45
PROC: 0HQ0XZZ Repair Scalp Skin, External Approach (ICD-10-PCS; principal; 2019-08-11)
PROC: 3E0234Z Introduction of Serum, Toxoid and Vaccine into Muscle, Percutaneous Approach (ICD-10-PCS; 2019-08-11)
DX: S01.01XA Laceration without foreign body of scalp, initial encounter (principal); W22.09XA Striking against other stationary object, initial encounter; Y93.89 Activity, other specified; Y92.9 Unspecified place or not applicable; F90.9 Attention-deficit hyperactivity disorder, unspecified type
CPT/HCPCS: 90715; 99282-25

== ENCOUNTER 2022-06-09 11:30 | Emergency (ER) | payer BC, OTHER ==
[2022-06-09 11:54] VITALS: BP 124/79; PULSE 72; RESP 16; TEMP 98.2; BMI 24.5
== END 2022-06-09 13:09 | disposition home or self-care (01) ==
LOC: FER 11:30
DX: S69.92XA Unspecified injury of left wrist, hand and finger(s), initial encounter (principal)
CPT/HCPCS: 73110-TC-LT-FY; 73130-TC-LT-FY; 99284-25